=== PATIENT | male | born 1985 | race Hispanic/Latino ===

== ENCOUNTER 2024-08-18 01:13 | Emergency (ER) | payer SELFPAY ==
[~2024-08-18] VITALS: Ht 185.4 cm; Wt 83.9 kg
[2024-08-18 01:15] VITALS: BP 122/84; PULSE 108; RESP 20; TEMP 97.4
--- NOTE | 2024-08-18 01:30 | NUR ---
PATIENT SEEN WALKING OUTSIDE BY FINAL TOUCH UP PAINTER ADAMS
--- NOTE | 2024-08-18 02:00 | NUR ---
NO ANSWER WHEN CALLED FOR EVALUATION BY Cee PAZ
--- NOTE | 2024-08-18 02:10 | NUR ---
REGISTRATION ASKING WHERE PATIENT IS, NO ANSWER WHEN CALLED FOR REGISTRATION
--- NOTE | 2024-08-18 02:15 | NUR ---
NO ANSWER WHEN CALLED, PATIENT IS NOT IN LOBBY, IS NOT OUTSIDE
== END 2024-08-18 02:15 | disposition left against medical advice (07) ==
LOC: EDH 01:13
DX: S51.811A Laceration without foreign body of right forearm, initial encounter (principal); Z53.21 Procedure and treatment not carried out due to patient leaving prior to being seen by health care provider; W22.8XXA Striking against or struck by other objects, initial encounter; Y93.89 Activity, other specified; Y92.89 Other specified places as the place of occurrence of the external cause; Y99.8 Other external cause status